=== PATIENT | female | born 1930 | race Caucasian/White ===

== ENCOUNTER 2018-08-21 08:46 | Outpatient (CLI) | payer MEDICARE ==
--- NOTE | 2018-08-21 09:48 | RAD ---
PA AND LATERAL CHEST XRAY: DATE: 08/21/2018. HISTORY: Shortness of breath. COMPARISON: None available. FINDINGS: Cardiac silhouette is at the upper limits of normal in size. Pulmonary vasculature is within normal limits. Vascular calcification is seen in the thoracic aorta. There is focal eventration of the ant erior right hemidiaphragm Lungs are clear. Surgical clips overlie the right upper quadrant. There is mild right convex scoliotic curvature of the lumbar spine with degenerative change seen in the vis ualized lumbar spine. IMPRESSION: No acute cardiopulmonary process. POS: [facility]
== END 2018-08-21 08:47 | disposition home or self-care (01) ==
LOC: RAD-FRANK 08:46
PROVIDERS: ATTEND Nurse Practitioner Family
DX: R06.02 Shortness of breath (principal)
CPT/HCPCS: 71046

== ENCOUNTER 2018-10-22 09:36 | Outpatient (CLI) | payer MEDICARE ==
--- NOTE | 2018-10-22 12:52 | ULT ---
RENAL ULTRASOUND: HISTORY: Chronic renal disease. TECHNIQUE: Real-time imaging of the right and left kidneys was performed. FINDINGS: The right kidney measures 8.3 and the left kidney 9 cm in size. There is an exophytic cyst involving the left kidney, measuring 4.2 cm, more in the mid pole of the left kidney. The bladder region is unremarkable. IMPRESSION: A 4.2 cm left renal cyst. No obstruction. POS: [facility]
== END 2018-10-22 09:37 | disposition home or self-care (01) ==
LOC: BICULT 09:36
PROVIDERS: ATTEND Internal Medicine Nephrology
DX: N18.3 Chronic kidney disease, stage 3 (moderate) (principal); N28.1 Cyst of kidney, acquired
CPT/HCPCS: 76770